=== PATIENT | male | born 1970 ===

== ENCOUNTER 2022-02-03 09:54 | Emergency (ER) | payer OTHER | END 2022-02-03 10:52 | disposition home or self-care (01) | LOC: MW.ED 09:54 | DX: U07.1 COVID-19 (principal); I10 Essential (primary) hypertension; E11.9 Type 2 diabetes mellitus without complications; Z79.899 Other long term (current) drug therapy; Z79.84 Long term (current) use of oral hypoglycemic drugs; Z86.16 Personal history of COVID-19 | CPT/HCPCS: 99282; 99283 ==